=== PATIENT | female | born 1985 | race Caucasian/White ===

== ENCOUNTER 2020-06-23 17:00 | Inpatient (IN) | payer OTHER ==
[~2020-06-23 17:00] MED LIST: ELECTROLYTE-148 SOLN 1,000 ML IV SCH
[2020-06-23] MEDS ORDERED: ELECTROLYTE-148 SOLN 1,000 ML IV SCH ×2 (17:31→19:45)
[2020-06-23 17:40] VITALS: BMI 26.3
[2020-06-23] MEDS ORDERED: CITRIC ACID/SODIUM CITRATE 30 ML UNIT-DOSE CUP PO ONE ×2 (18:00→19:44)
[2020-06-23 19:20] LABS: BASO % 0.6 % (0-2.0); EOS % 0.2 % (0-4.5); HEMATOCRIT 37.1 % (32.4-45.2); HEMOGLOBIN 12.4 GM/dL (10.7-15.3); MCH 30.2 pg (25.7-33.7); MCHC 33.4 g/dl (32.0-36.0); MEAN CELL VOLUME 90.4 fl (80-96); MEAN PLT VOLUME 10.2 fl (7.5-11.1); MONO % 4.4 % (3.8-10.2); NEUT % 82.8 % (42.8-82.8); PLATELET COUNT 199 K/MM3 (134-434); RDW 13.6 % (11.6-15.6); WHITE BLOOD COUNT 12.9 K/mm3 (4.0-10.0)
[2020-06-23] MEDS ORDERED: morphine SULFATE/PF 0.5 MG/ML (2cc Syringe - QUVA) ONE (19:25)
[2020-06-23] MEDS ORDERED: KETOROLAC TROMETHAMINE 30 MG/1 ML VIAL ONE (19:26)
[2020-06-23] MEDS ORDERED: PHENYLEPHRINE HCL 10 MG/1 ML SINGLE DOSE VIAL ONE (19:26)
[2020-06-23] MEDS ORDERED: ceFAZolin SODIUM 1 GM VIAL ONE (19:26)
[2020-06-23] MEDS ORDERED: OXYTOCIN 10 UNITS/ML VIAL ONE (19:26)
[2020-06-23 19:29] LABS: INR 0.88 (0.83-1.09); PROTHROMBIN TIME (PATIENT) 10.4 SEC (9.7-13.0)
[2020-06-23 19:31] LABS: ACTIVATED PTT 25.6 SECONDS (25.2-36.5); BLOOD UREA NITROGEN 8.6 mg/dL (7-18); CALCIUM 8.5 mg/dL (8.5-10.1); CREATININE 0.5 mg/dL (0.55-1.3); POTASSIUM 4.4 mmol/L (3.5-5.1)
[2020-06-23] MEDS ORDERED: SODIUM CHLORIDE 0.9% P/F 10 ML VIAL IJ ONE (19:43)
[2020-06-23] MEDS ORDERED: ELECTROLYTE-148 SOLN 500 ML IV ONE (19:44)
--- NOTE | 2020-06-23 19:49 | HP ---
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: Alzheimer's, CVA, Dementia, Migraine, Multiple Sclerosis, Peripheral Neuropathy, Parkinson's, Seizure, Syncope, TIA, Vertigo, Other Cardiovascular: No: AFIB, Aneurysm, Aortic Insufficiency, Aortic Stenosis, CAD, CHF, Deep Vein Thrombosis, HTN, Hyperlipdemia, KS, Mitral Insufficiency, Mitral Stenosis, Murmur, Pulmonary Hypertension, Other Pulmonary: No: Asthma, Bronchitis, Cancer, COPD, O2 Dependent, Pneumonia, Previously Intubated, Pulmonary Embolus, Pulmonary Fibrosis, Sleep Apnea, Other Gastrointestinal: No: Ascites, Cancer, Constipation, Crohn's Disease, Diverticulitis, Diverticulosis, Esophageal Varices, Gastritis, GERD, GI Bleed, Hemorrhoids, Hiatal Hernia, Inflamatory Bowel Disease, Irritable Bowel Disease, Pancreatitis, Peptic Ulcer Disease, Ulcerative Colitis, Other Hepatobiliary: No: Cirrhosis, Cholelithiasis, Cholecystitis, Choledocholithiasis, Hepatitis A, Hepatitis B, Hepatitis C, Other Renal/: No: Renal Failure, Renal Inusuff, BPH, Cancer, Hematuria, Hemodialysis, Neurogenic Bladder, Renal Calculi, UTI, Other Reproductive: No: Ectopic , Endometriosis, Fibroids, PID, Polycystic Ovary Syndrome, Postmenopausal, Other ...: 3 ...Para: 2 ...Term: 1 ...: 1 ...Spon : 0 ...Induced : 0 ...Living Children: 0 ...Multiple Gestation: 0 ...EDC by Isadora: 07/04/20 Heme/Onc: No: Anemia, B12 Deficiency, Bleeding Disorder, Cancer, Current Chemotherapy, Current Radiation Therapy, Hemochromatosis, Hypercoaguable State, Myeloproliferative Synd, Sickle Cell Disease, Sickle Cell Trait, Thrombocytopenia, Other Infectious Disease: No: AIDS, C-Diff, Herpes Zoster, HIV, MRSA, STD's, Tuberculosis, VREF, Other Psych: No: Addictions, Anxiety, Bipolar, Depression, Panic, Psychosis, Schizophrenia, Other Musculoskeletal: No: Bursitis, Chronic low back pain, Hemiparesis, Hemiplegia, Osteoarthritis, Paraplegia, Other Rheumatology: No: Fibromyalgia, Gout, Lupus, Rheumatoid Arthritis, Sarcoidosis, Vasculitis, Other ENT: No: Allergic Rhinitis, Sinusitis, Other Endocrine: No: Peña's Disease, Agusto's Disease, Diabetes Insipidus, Diabetes Mellitus, Hyperparathyroidism, Hyperthyroidism, Hypothyroidism, Osteopenia, SIADH, Other Dermatology: No: Basal Cell, Cellulitis, Eczema, Melanoma, Psoriasis, Squamous Cell, Other - Past Surgical History Past Surgical History: Yes: Bariatric Surgery, Hx Myomectomy: No Hx Transabdominal Cerclage: No - Advance Directives Advance Directives: Yes: Living Will - Smoking History Smoking history: Never smoked Have you smoked in the past 12 months: No - Alcohol/Substance Use Hx Alcohol Use: No History of Substance Use: reports: None - Social History Usual Living Arrangement: Yes: With Significant Other Do you think of yourself as: Straight/Heterosexual ADL: Independent History of Recent Travel: No Home Medications - Allergies Allergies/Adverse Reactions: Allergies Allergy/AdvReac Type Severity Reaction Status Date / Time No Known Allergies Allergy Verified 06/23/20 17:23 - Home Medications Home Medications: Ambulatory Orders Metoprolol Tartrate 25 mg PO BID 06/23/20 Vit/Iron Fum/Folic AC [ Tablet] 1 tab PO DAILY 06/23/20 Family Medical History Family History: Denies Review of Systems - Review of Systems Constitutional: reports: No Symptoms Eyes: reports: No Symptoms HENT: reports: No Symptoms Neck: reports: No Symptoms Cardiovascular: reports: No Symptoms Respiratory: reports: No Symptoms Gastrointestinal: reports: No Symptoms Genitourinary: reports: No Symptoms Breasts: reports: No Symptoms Reported Musculoskeletal: reports: No Symptoms Integumentary: reports: No Symptoms Neurological: reports: No Symptoms Endocrine: reports: No Symptoms Hematology/Lymphatic: reports: No Symptoms Psychiatric: reports: No Symptoms Physical Exam - Maternity Vital Signs: Vital Signs Temperature 98.3 F 06/23/20 18:15 Pulse Rate 78 06/23/20 18:15 Respiratory Rate 20 06/23/20 18:15 Blood Pressure 120/76 06/23/20 18:15 O2 Sat by Pulse Oximetry (%) Constitutional: Yes: Well Nourished, No Distress, Calm Eyes: Yes: WNL, Conjunctiva Clear, EOM Intact HENT: Yes: WNL, Atraumatic, Normocephalic Neck: Yes: WNL, Supple, Trachea Midline Cardiovascular: Yes: WNL, Regular Rate and Rhythm Lungs: Clear to auscultation Breast(s): Yes: WNL - Abdominal Exam/OB Fundal Height: 36 Number of Fetuses: Single Presentation: Vertex Contractions: Yes Regularity: Regular Intensity: Moderate Monitor Mode: External Heart Rate (range): 150 Heart Rate Location: [place] Category: I Accelerations: Uniform Decelerations: None - Vaginal Exam/OB Vaginal Bleeding: No Speculum Exam: No Dilatation (cm): 2 to 3 Effacement (%): 60 Amniotic Membrane Status: Intact Amniotic Fluid: Yes: Clear Presentation: Vertex/Position Station: -2 - Physical Exam Musculoskeletal: Yes: WNL Extremities: Yes: WNL Edema: Yes Edema: LUE: 1+, RUE: 1+, LLE: 1+, RLE: 1+ Integumentary: Yes: WNL Deep Tendon Reflex Grade: Normal +2 ...Motor Strength: WNL Psychiatric: Yes: WNL, Alert, Oriented - Labs Lab Results: CBC, BMP 06/23/20 17:55 06/23/20 17:55 Hemorrhage Risk Assessment - Risk Factors Medium Risk Factors: Yes: Prior , uterine surgery,or multiple laparotomies High Risk Factors: Yes: None Risk Score: 1 Risk Level: Medium Risk Assessment/Plan repeat lt c s in labor
[2020-06-23] MEDS ORDERED: METHYLERGONOVINE MALEATE 0.2 MG/1 ML AMP IM PRN (21:00)
[2020-06-23] MEDS ORDERED: oxyCODONE HCL 5 MG TABLET PO PRN (21:00)
[2020-06-23] MEDS ORDERED: OXYTOCIN 20 UNITS in 0.9% NS 20 UNIT/1,000 ML INFUS.BAG IV SCH (21:00)
--- NOTE | 2020-06-23 21:05 | OP ---
Operative Note - Note: Operative Date: 06/23/20 Pre-Operative Diagnosis: repeat c s in labor Operation: repeat lt c s Findings: slight adhesions , bladder attach slightly to lower transvers segment area Post-Operative Diagnosis: Same as Pre-op Surgeon: Jossue Morales Customer Service Sales Associate: Nathan Reyna Anesthesiologist/[facility] BPC ARCHITECT: Terrence Darden Anesthesia: Spinal Estimated Blood Loss (mls): 600 (no complications ) Operative Report Dictated: Yes
--- NOTE | 2020-06-23 22:39 | OP ---
DATE OF OPERATION: 06/23/2020 PREOPERATIVE DIAGNOSIS: Repeat low transverse section in labor, and previous history of abdominoplasty, previous history of section, previous history of gastric bypass. POSTOPERATIVE DIAGNOSIS: Repeat low transverse section in labor, and previous history of abdominoplasty, previous history of section, previous history of gastric bypass. Cord around the shoulder x1. PROCEDURE: Repeat low transverse section. SURGEON: Jossue Morales MD. BOW TACKER: CHANDRA Winters. ANESTHESIOLOGIST: Fran Darden MD. ANESTHESIA: Spinal INDICATION: A 35-year-old female patient, 38 weeks and a few days , scheduled for this Tuesday coming up for a section for 39 weeks, however patient complained of contractions for the past 2-3 days and intensity has increased today and feels like every 5-10 minutes. Patient complains of a lot of pain, and the patient has history of abdominoplasty, and the patient has history of section, patient has history of abdominal gastric bypass, also a lot of stomach pain, cannot eat, so all the risks, benefits, and alternatives, patient was placed on the monitor, patient was telma every 3 minutes, until the patient was taken to the OR for repeat low transverse section. DESCRIPTION OF PROCEDURE: Patient was placed on operating table in supine position after spinal anesthesia was obtained. The patient's abdomen and pelvis were prepped and draped in the usual sterile manner. Pfannenstiel incision was made. The incision was made through skin, subcutaneous tissue, until the fascia was nicked in the midline. The fascia was extended bilaterally. Patient had a previous history of abdominoplasty and a , so we followed the same abdominoplasty scar, which is a little bit higher than the usual Pfannenstiel incision, so incision was made through the same scar into the fascia. Fascia had Prolene suture applied, so we cut through the Prolene suture with the Arita, and we dissected fascia, and fascia extended bilaterally, and we were able to enter into the peritoneal cavity. Bladder flap was slightly attached to the lower segment area, dissect that down with a bladder flap, and good hemostasis. Then we enter the uterus in low transverse segment area. Baby was delivered from LOT position. There was a cord around the shoulder x1, and the baby was handed over to rolls mill operator after umbilical cord doubly clamped and cut. Cord blood gas was not obtained. The placenta was removed. Uterus was closed in single layer, first layer interlocking suture, good hemostasis, and no complications. Patient tolerated the procedure well. Both ovaries and tubes were within normal limits. Patient requested tubal ligation, but patient had never signed the papers, so we did not do the tubal ligation. Patient tolerated procedure well. Peritoneum was closed. Fascia was closed. Subcutaneous tissue was closed. Skin was closed with Vicryl suture. Good hemostasis. No complications. Tolerated procedure well. Transferred to recovery room in stable condition. MD BERTHA RHODES/[id number]
[2020-06-23] MEDS: IBUPROFEN 800 MG/8 ML IJ IVPB PRN (23:09)
[2020-06-24] MEDS: IBUPROFEN 800 MG/8 ML IJ IVPB PRN (08:07)
[2020-06-24 08:09] LABS: BASO % 0.3 % (0-2.0); EOS % 0.2 % (0-4.5); HEMATOCRIT 30.4 % (32.4-45.2); LYMPH % 12.7 % (8-40); MCH 29.8 pg (25.7-33.7); MEAN CELL VOLUME 90.4 fl (80-96); MEAN PLT VOLUME 8.8 fl (7.5-11.1); MONO % 5.4 % (3.8-10.2); NEUT % 81.4 % (42.8-82.8); PLATELET COUNT 172 K/MM3 (134-434); RBC 3.37 M/mm3 (3.60-5.2); RDW 13.5 % (11.6-15.6); WHITE BLOOD COUNT 12.1 K/mm3 (4.0-10.0)
--- NOTE | 2020-06-24 08:18 | PN ---
Progress Note (short form) - Note Progress Note: Anesthesia/Pain Pt seen and examined S:Alert and awake,comfortable O: Vital Signs Temperature 98.6 F 06/24/20 06:00 Pulse Rate 73 06/24/20 06:00 Respiratory Rate 20 06/24/20 06:00 Blood Pressure 98/58 L 06/24/20 06:00 O2 Sat by Pulse Oximetry (%) 98 06/24/20 06:00 CBC, BMP 06/24/20 07:21 06/23/20 17:55 A/P; s/p c section Doing well post op Continue current care Chandana Pierce M.D.
[2020-06-24] MEDS: PRENATAL VITAMINS W/ FOLIC ACID TABLET (FP) PO SCH (09:02)
--- NOTE | 2020-06-24 09:15 | PN ---
Post Progress Note Post Day: 1 Type of Delivery: Repeat C/S Vital Signs: Vital Signs Temperature 98.6 F 06/24/20 06:00 Pulse Rate 73 06/24/20 06:00 Respiratory Rate 20 06/24/20 06:00 Blood Pressure 98/58 L 06/24/20 06:00 O2 Sat by Pulse Oximetry (%) 98 06/24/20 06:00 Breast Exam: Yes: Soft Uterus: Yes: Fundus Firm, Fundus below umbilicus Incision: Yes: Dressing dry and intact, Sutures intact Abdomen/GI: Yes: Abdomen soft, Passing flatus, Tolerating PO Lochia: Yes: Serosa Lochia, amount: Small Extremities: Yes: Calves non-tender Perineum: Yes: Intact Activity: Ambulating (doing well, ) - Labs Labs: CBC WBC 12.1 K/mm3 (4.0-10.0) H 06/24/20 07:21 RBC 3.37 M/mm3 (3.60-5.2) L 06/24/20 07:21 Hgb 10.0 GM/dL (10.7-15.3) L 06/24/20 07:21 Hct 30.4 % (32.4-45.2) L D 06/24/20 07:21 MCV 90.4 fl (80-96) 06/24/20 07:21 MCH 29.8 pg (25.7-33.7) 06/24/20 07:21 MCHC 33.0 g/dl (32.0-36.0) 06/24/20 07:21 RDW 13.5 % (11.6-15.6) 06/24/20 07:21 Plt Count 172 K/MM3 (134-434) 06/24/20 07:21 MPV 8.8 fl (7.5-11.1) D 06/24/20 07:21 Absolute Neuts (auto) 9.9 K/mm3 (1.5-8.0) H 06/24/20 07:21 Neutrophils % 81.4 % (42.8-82.8) 06/24/20 07:21 Lymphocytes % 12.7 % (8-40) 06/24/20 07:21 Monocytes % 5.4 % (3.8-10.2) 06/24/20 07:21 Eosinophils % 0.2 % (0-4.5) 06/24/20 07:21 Basophils % 0.3 % (0-2.0) 06/24/20 07:21 Nucleated RBC % 0 % (0-0) 06/24/20 07:21
[2020-06-24] MEDS: SIMETHICONE 80 MG TAB.CHEW (FP) PO PRN ×3 (10:46→21:23)
[2020-06-24] MEDS: ACETAMINOPHEN 325 MG TABLET (FP) PO PRN ×3 (10:46→21:24)
[2020-06-24] MEDS: IBUPROFEN 600 MG TABLET (FP) PO PRN (16:05)
[2020-06-24] MEDS ORDERED: BISACODYL 10 MG SUPP.RECT RC PRN (21:00)
[2020-06-24] MEDS: SENNOSIDES/DOCUSATE COMBO (SENNA PLUS) TABLET (UD) PO PRN (21:23)
[2020-06-24] MEDS: oxyCODONE HCL 5 MG TABLET PO PRN (21:23)
[2020-06-25] MEDS: ACETAMINOPHEN 325 MG TABLET (FP) PO PRN ×3 (01:54→14:49)
[2020-06-25] MEDS: SIMETHICONE 80 MG TAB.CHEW (FP) PO PRN ×4 (01:54→19:58)
[2020-06-25] MEDS: oxyCODONE HCL 5 MG TABLET PO PRN ×4 (01:54→19:59)
[2020-06-25] MEDS: PRENATAL VITAMINS W/ FOLIC ACID TABLET (FP) PO SCH (09:41)
[2020-06-25] MEDS: IBUPROFEN 600 MG TABLET (FP) PO PRN (19:59)
[2020-06-25] MEDS: SENNOSIDES/DOCUSATE COMBO (SENNA PLUS) TABLET (UD) PO PRN (19:59)
[2020-06-25 20:04] VITALS: BP 120/77; TEMP 98.6
--- NOTE | 2020-06-25 20:59 | DS ---
Physical Exam-POWER LINEMAN TECHNICIAN Vital Signs: Vital Signs Temperature 98.6 F 06/25/20 20:03 Pulse Rate 104 H 06/25/20 20:03 Respiratory Rate 20 06/25/20 20:03 Blood Pressure 120/77 06/25/20 20:03 O2 Sat by Pulse Oximetry (%) 98 06/25/20 09:27 Constitutional: Yes: Well Nourished, No Distress, Calm Eyes: Yes: WNL, Conjunctiva Clear, EOM Intact HENT: Yes: WNL, Atraumatic, Normocephalic Neck: Yes: WNL, Supple, Trachea Midline Cardiovascular: Yes: WNL, Regular Rate and Rhythm Respiratory: Yes: WNL, Regular, CTA Bilaterally Gastrointestinal: Yes: WNL, Normal Bowel Sounds, Soft ...Rectal Exam: Yes: WNL Renal/: Yes: WNL Pelvis: Yes: WNL External Genitalia: Yes: Normal Internal Exam Deferred: Yes Vaginal Exam: Yes: Normal Cervix: Yes: Normal Uterus: Yes: Normal Adnexa: Normal: Bilateral ....Post : Yes: Uterus firm, Uterus non-tender Breast(s): Yes: WNL Musculoskeletal: Yes: WNL Extremities: Yes: WNL Edema: Yes Integumentary: Yes: WNL Wound/Incision: Yes: Clean/Dry, Well Approximated Neurological: Yes: WNL, Alert, Oriented ...Motor Strength: WNL Psychiatric: Yes: WNL, Alert, Oriented Labs: CBC, BMP 06/24/20 07:21 06/23/20 17:55 Delivery - Delivery Section: Repeat Type of Anesthesia: Spinal Episiotomy/Laceration: None EBL (cc): 600 Delivery, Single - Stages of Labor Date of Delivery: 06/23/20 Time of Delivery: 20:10 Time Placenta Delivered: 20:12 - Condition of Film Reproducer/Patient Coordinator Front Desk Present: Yes Name: Graeme Combs Infant Gender: Female Weight: 2.693 kg Position: Left, OA Total Hours ROM (Hrs/Mins): 2min - 1 Minute Total Score: 9 5 Minutes Total Score: 9 - Feeding Plan Initial Plan: Elected not to breastfeed exclusively throughout hospitalization Discharge Summary Problems reviewed: Yes Reason For Visit: C SECTION Procedures: Principal: repeat lt c s Condition: Good - Instructions Diet, Activity, Other Instructions: Physical activity Resume your normal everyday activity as tolerated no heavy lifting or exercise until seen by your surgeon. You may walk unlimited devika of and climb stairs. You may resume driving the car when you feel safe and comfortable behind the wheel. No sexual activity as instructed. Wound care If you have a bandage, leave it on, and keep dry for 48-72 hours. After that time discard the outer bandage. If they are tapes on the skin under the out of bandage leave them in place. They will peel off in the next 7 to 10 days. Do Not Peel them off. You may shower the day after surgery. If there are tapes present on the skin, you may shower over them. Diet There are no dietary restrictions. Eat healthy, high-fiber foods. Drink 6 to 8 glasses of liquid each day. This will assist in keeping your bowels are regular. Pain management You may take Tylenol or acetaminophen or Ibuprofen (for example, Motrin, Advil etc.) from my pain prescription medication is ordered should be taken as prescribed for moderate to severe pain. Call MD for any of the following:call justin nip wrapper for 2 weeks appointment Severe pain not relieved by medication Fever of 101 or higher Excessive bleeding or drainage on dressing Inability to urinate Disposition: HOME - Home Medications Comprehensive Discharge Medication List: Ambulatory Orders Metoprolol Tartrate 25 mg PO BID 06/23/20 Vit/Iron Fum/Folic AC [ Tablet] 1 tab PO DAILY 06/23/20 Prescription Drug Monitoring Program (I-STOP) results: I-STOP reviewed and no issues identified
[2020-06-26] MEDS: IBUPROFEN 600 MG TABLET (FP) PO PRN ×2 (01:48→13:00)
[2020-06-26] MEDS: SIMETHICONE 80 MG TAB.CHEW (FP) PO PRN (01:48)
[2020-06-26] MEDS: oxyCODONE HCL 5 MG TABLET PO PRN (01:51)
--- NOTE | 2020-06-26 07:32 | PN ---
Post Progress Note Post Day: 3 Type of Delivery: Repeat C/S Vital Signs: Vital Signs Temperature 98.6 F 06/25/20 20:03 Pulse Rate 104 H 06/25/20 20:03 Respiratory Rate 20 06/25/20 20:03 Blood Pressure 120/77 06/25/20 20:03 O2 Sat by Pulse Oximetry (%) 98 06/25/20 09:27 Breast Exam: Yes: Soft Uterus: Yes: Fundus Firm, Fundus below umbilicus Incision: Yes: Dressing dry and intact, Sutures intact Abdomen/GI: Yes: Abdomen soft, Passing flatus, Tolerating PO Lochia: Yes: Serosa Lochia, amount: Small Extremities: Yes: Calves non-tender Perineum: Yes: Intact Activity: Ambulating - Labs Labs: CBC WBC 12.1 K/mm3 (4.0-10.0) H 06/24/20 07:21 RBC 3.37 M/mm3 (3.60-5.2) L 06/24/20 07:21 Hgb 10.0 GM/dL (10.7-15.3) L 06/24/20 07:21 Hct 30.4 % (32.4-45.2) L D 06/24/20 07:21 MCV 90.4 fl (80-96) 06/24/20 07:21 MCH 29.8 pg (25.7-33.7) 06/24/20 07:21 MCHC 33.0 g/dl (32.0-36.0) 06/24/20 07:21 RDW 13.5 % (11.6-15.6) 06/24/20 07:21 Plt Count 172 K/MM3 (134-434) 06/24/20 07:21 MPV 8.8 fl (7.5-11.1) D 06/24/20 07:21 Absolute Neuts (auto) 9.9 K/mm3 (1.5-8.0) H 06/24/20 07:21 Neutrophils % 81.4 % (42.8-82.8) 06/24/20 07:21 Lymphocytes % 12.7 % (8-40) 06/24/20 07:21 Monocytes % 5.4 % (3.8-10.2) 06/24/20 07:21 Eosinophils % 0.2 % (0-4.5) 06/24/20 07:21 Basophils % 0.3 % (0-2.0) 06/24/20 07:21 Nucleated RBC % 0 % (0-0) 06/24/20 07:21
[2020-06-26] MEDS: PRENATAL VITAMINS W/ FOLIC ACID TABLET (FP) PO SCH (10:48)
[2020-06-26 12:49] VITALS: PULSE 90
[2020-06-26] MEDS: ACETAMINOPHEN 325 MG TABLET (FP) PO PRN (13:01)
--- NOTE | 2020-07-01 14:51 | PATH ---
Surgical Pathology Report Patient Name: BLOSSOM LEMONS Med. Rec. #: [id number] /Age/Gender: 1985 (Age: 35) / F Account: [id number] Location: [facility] OBS/STUDENT SERVICES COUNSELOR Taken: 06/23/2020 Received: 06/24/2020 Reported: 07/01/2020 Physicians: Jossue Morales MD Specimen(s) Received PLACENTA Clinical History , AB- blood type, repeat in labor Final Diagnosis PLACENTA, : MATURE THIRD TRIMESTER PLACENTA (386 G) WITH TRIVESSEL UMBILICAL CORD AND UNREMARKABLE MEMBRANES. Electronically Signed Jessica Musa M.D. Gross Description The specimen is received fresh labeled placenta and is a 386 gram, 15.5 x 15.0 x 2.2 cm. placenta with attached membranes and umbilical cord. The attached membranes are hartley, translucent with focal opacities and insert marginally. The umbilical cord measures 30 cm. in length and averages 1 cm. in diameter. The cord inserts centrally. No true knots or strictures are identified. Cut surface of the umbilical cord reveals 3 vessels. The surface is lundy-blue with minimal fibrin deposition and appropriate caliber vessels. The maternal surface is red-brown with focal defects. Sectioning reveals red-brown, spongy parenchyma. No lesions are identified. Deicer Kit Assembler sections are submitted in three cassettes as follows: 1- membrane rolls and umbilical cord; 2-3- full thickness sections of placenta. /06/26/2020 [facility]06/26/2020
== END 2020-06-26 15:14 | disposition home or self-care (01) | DRG 540 ==
LOC: JLDR 17:00 → J3W 23:38
PROVIDERS: ADMIT Obstetrics & Gynecology; ATTEND Obstetrics & Gynecology
PROC: 10D00Z1 Extraction of Products of Conception, Low, Open Approach (ICD-10-PCS; principal; 2020-06-23)
DX: O34.211 Maternal care for low transverse scar from previous cesarean delivery (principal); O69.89X0 Labor and delivery complicated by other cord complications, not applicable or unspecified; Z3A.38 38 weeks gestation of pregnancy; Z37.0 Single live birth
CPT/HCPCS: 36415; 80048; 85025; 85461; 85610; 85730; 86780; 86850; 86900; 86901; 86999; 87389; 88307-TC; C9803; U0003

== ENCOUNTER 2022-07-13 16:35 | Emergency (ER) | payer OTHER ==
[2022-07-13 16:56] VITALS: BP 121/78; PULSE 88; RESP 19; TEMP 98.6; BMI 22.4
== END 2022-07-13 18:13 | disposition home or self-care (01) ==
LOC: JERFT 16:35
PROC: 0HQ1XZZ Repair Face Skin, External Approach (ICD-10-PCS; principal; 2022-07-13)
DX: S01.112A Laceration without foreign body of left eyelid and periocular area, initial encounter (principal); Y99.8 Other external cause status
CPT/HCPCS: 99282-25

== ENCOUNTER 2022-07-21 19:02 | Emergency (ER) | payer OTHER ==
[2022-07-21 19:34] VITALS: BP 115/80; PULSE 87; RESP 16; TEMP 98.1; BMI 22.4
== END 2022-07-21 20:39 | disposition home or self-care (01) ==
LOC: JER 19:02 → JERFT 19:02
DX: Z48.02 Encounter for removal of sutures (principal)
CPT/HCPCS: 99281-25

== ENCOUNTER 2024-05-03 18:40 | Emergency (ER) | payer SELFPAY ==
[2024-05-03 18:55] VITALS: BMI 21.3
[2024-05-03 20:17] LABS: EPI CELLS 30 /uL (0-25.1); HCG,QUALITATIVE URINE Negative; HYALINE CASTS 3 /uL (0-3.1); URINE APPEARANCE CLEAR; URINE BACTERIA 2305 /uL (0-1359); URINE BILIRUBIN NEGATIVE (NEGATIVE); URINE COLOR YELLOW; URINE GLUCOSE (UA) NEGATIVE (NEGATIVE); URINE KETONE TRACE (NEGATIVE); URINE LEUK ESTERASE 2+ (NEGATIVE); URINE NITRITE NEGATIVE (NEGATIVE); URINE PROTEIN NEGATIVE (NEGATIVE); URINE RBC 5 /uL (0-23.9); URINE UROBILINOGEN 0.2 mg/dL (0.2-1.0); URINE WBC 76 /uL (0-25.8)
[2024-05-03] MEDS ORDERED: ACETAMINOPHEN INJECTION 100 ML IVPB ONE (21:16)
[2024-05-03] MEDS: SODIUM CHLORIDE 1,000 ML IV STA ×2 (21:22→23:26)
[2024-05-03] MEDS: ACETAMINOPHEN 1000 MG/100 ML BAG IVPB ONE (21:23)
[2024-05-03 21:25] LABS: BASO % 0.6 % (0-2.0); EOS % 1.8 % (0-4.5); HEMATOCRIT 25.4 % (32.4-45.2); HEMOGLOBIN 7.6 GM/dL (10.7-15.3); LYMPH % 32.7 % (8-40); MEAN PLT VOLUME 8.2 fl (7.5-11.1); MONO % 10.9 % (3.8-10.2); PLATELET COUNT 325 10^3/uL (134-434); RBC 3.96 M/mm3 (3.60-5.2); RDW 19.4 % (11.6-15.6); WHITE BLOOD COUNT 4.9 K/mm3 (4.0-10.0)
[2024-05-03 21:32] LABS: MCH 19.2 pg (25.7-33.7)
[2024-05-03 21:46] LABS: POTASSIUM 3.8 mmol/L (3.5-5.1)
[2024-05-03 21:47] LABS: CALCIUM 8.6 mg/dL (8.5-10.1)
[2024-05-03 21:48] LABS: ALBUMIN 3.3 g/dl (3.4-5.0); BLOOD UREA NITROGEN 8.9 mg/dL (7-18)
[2024-05-03 21:51] LABS: CREATININE 0.7 mg/dL (0.55-1.3)
[2024-05-03 21:52] LABS: BILIRUBIN,TOTAL 0.4 mg/dL (0.2-1)
[2024-05-03 21:53] LABS: TOT PROT 6.9 g/dl (6.4-8.2)
[2024-05-03] MEDS ORDERED: FAMOTIDINE 20 MG/50 ML IVPB 20 MG/50 ML MG IVPB ONE (22:07)
[2024-05-03] MEDS ORDERED: CEFTRIAXONE 1 GM/50 ML BAG ONE (22:07)
[2024-05-03] MEDS: FAMOTIDINE 20 MG/50 ML IVPB 20 MG/50 ML MG IVPB ONE (22:12)
[2024-05-03] MEDS: CEFTRIAXONE 1,000 MG in DEXTROSE 5%-WATER - 50 ML IVPB ONE (22:12)
[2024-05-03 22:41] LABS: ANISOCYTOSIS 1+; MACROCYTOSIS 0
[2024-05-04] MEDS ORDERED: MAG HYDROX/AL HYDROX/SIMETH 30 ML UNIT-DOSE CUP ONE (01:14)
[2024-05-04] MEDS: MAG HYDROX/AL HYDROX/SIMETH 30 ML UNIT-DOSE CUP PO ONE (01:20)
[2024-05-04 01:44] LABS: BASO % 0.8 % (0-2.0); EOS % 1.4 % (0-4.5); HEMATOCRIT 24.3 % (32.4-45.2); HEMOGLOBIN 7.3 GM/dL (10.7-15.3); LYMPH % 34.9 % (8-40); MCHC 29.9 g/dl (32.0-36.0); MEAN CELL VOLUME 64.2 fl (80-96); MEAN PLT VOLUME 7.9 fl (7.5-11.1); MONO % 11.2 % (3.8-10.2); NEUT % 51.7 % (42.8-82.8); PLATELET COUNT 303 10^3/uL (134-434); RBC 3.78 M/mm3 (3.60-5.2); RDW 19.9 % (11.6-15.6); WHITE BLOOD COUNT 4.7 K/mm3 (4.0-10.0)
[2024-05-04 01:49] LABS: MCH 19.2 pg (25.7-33.7)
[2024-05-04 02:17] VITALS: BP 115/80; PULSE 79; RESP 11; TEMP 98.2
== END 2024-05-04 03:21 | disposition home or self-care (01) ==
LOC: JER 18:40
PROC: 3E03329 Introduction of Other Anti-infective into Peripheral Vein, Percutaneous Approach (ICD-10-PCS; principal; 2024-05-03)
PROC: 3E033GC Introduction of Other Therapeutic Substance into Peripheral Vein, Percutaneous Approach (ICD-10-PCS; 2024-05-03)
PROC: 3E033NZ Introduction of Analgesics, Hypnotics, Sedatives into Peripheral Vein, Percutaneous Approach (ICD-10-PCS; 2024-05-03)
PROC: 3E0337Z Introduction of Electrolytic and Water Balance Substance into Peripheral Vein, Percutaneous Approach (ICD-10-PCS; 2024-05-03)
PROC: 3E0337Z Introduction of Electrolytic and Water Balance Substance into Peripheral Vein, Percutaneous Approach (ICD-10-PCS; 2024-05-03)
DX: R10.84 Generalized abdominal pain (principal); R11.2 Nausea with vomiting, unspecified; R19.7 Diarrhea, unspecified; R50.9 Fever, unspecified; M79.10 Myalgia, unspecified site; R51.9 Headache, unspecified; Z20.822 Contact with and (suspected) exposure to COVID-19
CPT/HCPCS: 0241U-QW; 36415; 80053; 81003; 83690; 84703; 85025; 87086; 87186; 99284-25; J0131

== ENCOUNTER 2024-07-04 18:32 | Emergency (ER) | payer OTHER ==
[2024-07-04 19:04] VITALS: BP 117/79; PULSE 83; RESP 20; TEMP 98.2; BMI 21.6
[2024-07-04] MEDS ORDERED: METOCLOPRAMIDE HCL INJECTION 10 MG/2 ML VIAL ONE (20:30)
[2024-07-04 21:19] LABS: ADD RBC MORPHOLOGY YES; BASO % 1.4 % (0-2.0); EOS % 0.8 % (0-4.5); HEMATOCRIT 27.5 % (32.4-45.2); HEMOGLOBIN 8.1 GM/dL (10.7-15.3); LYMPH % 31.7 % (8-40); MCHC 29.6 g/dl (32.0-36.0); MEAN CELL VOLUME 64.3 fl (80-96); MONO % 5.1 % (3.8-10.2); RBC 4.28 M/mm3 (3.60-5.2); RDW 20.4 % (11.6-15.6); WHITE BLOOD COUNT 7.9 K/mm3 (4.0-10.0)
[2024-07-04 21:48] LABS: ANISOCYTOSIS 2+; MACROCYTOSIS 0; OVALOCYTE 1+
[2024-07-04 21:49] LABS: PLATELET ESTIMATE DECREASED
[2024-07-04] MEDS: SODIUM CHLORIDE 0.9% 500 ML INFUS.BAG IV ONE (21:51)
[2024-07-04] MEDS: ACETAMINOPHEN 1000 MG/100 ML BAG IVPB ONE (21:51)
[2024-07-04] MEDS: METOCLOPRAMIDE HCL INJECTION 10 MG/2 ML VIAL IVPUSH ONE (21:53)
[2024-07-04 22:55] LABS: ALBUMIN 3.4 g/dl (3.4-5.0); BLOOD UREA NITROGEN 11.1 mg/dL (7-18); CALCIUM 8.8 mg/dL (8.5-10.1)
[2024-07-04 22:58] LABS: CREATININE 0.6 mg/dL (0.55-1.3)
[2024-07-04 23:00] LABS: BILIRUBIN,TOTAL 0.5 mg/dL (0.2-1)
[2024-07-04] MEDS ORDERED: KETOROLAC TROMETHAMINE 15 MG/ML VIAL ONE (23:40)
[2024-07-04] MEDS: KETOROLAC TROMETHAMINE 15 MG/ML VIAL IVPUSH ONE (23:48)
[2024-07-05 00:04] LABS: URINE APPEARANCE CLEAR; URINE BILIRUBIN NEGATIVE (NEGATIVE); URINE COLOR YELLOW; URINE GLUCOSE (UA) NEGATIVE (NEGATIVE); URINE KETONE TRACE (NEGATIVE)
[2024-07-05 00:05] LABS: URINE LEUK ESTERASE NEGATIVE (NEGATIVE); URINE NITRITE NEGATIVE (NEGATIVE); URINE PROTEIN NEGATIVE (NEGATIVE); URINE UROBILINOGEN 0.2 mg/dL (0.2-1.0)
[2024-07-05 00:07] LABS: HCG,QUALITATIVE URINE Negative
== END 2024-07-05 01:43 | disposition home or self-care (01) ==
LOC: JER 18:32
PROC: 3E033NZ Introduction of Analgesics, Hypnotics, Sedatives into Peripheral Vein, Percutaneous Approach (ICD-10-PCS; principal; 2024-07-04)
PROC: 3E0333Z Introduction of Anti-inflammatory into Peripheral Vein, Percutaneous Approach (ICD-10-PCS; 2024-07-04)
PROC: 3E033GC Introduction of Other Therapeutic Substance into Peripheral Vein, Percutaneous Approach (ICD-10-PCS; 2024-07-04)
DX: R51.9 Headache, unspecified (principal); D64.9 Anemia, unspecified; R42 Dizziness and giddiness; R53.1 Weakness; R11.0 Nausea
CPT/HCPCS: 36415; 70450-TC; 80053; 81003; 84703; 85025; 86850; 86900; 86901; 87077; 87086; 93005; 93010; 99285-25; J0131